=== PATIENT | female | born 1955 | race Caucasian/White ===

== ENCOUNTER → 2017-09-08 | Outpatient (CLI) | payer OTHER ==
--- NOTE | 2017-09-08 10:49 | REP ---
Right upper quadrant sonography: History: However quadrant pain. Abnormal stools. Comparison study: No comparison study. Findings: Scanning through the right upper quadrant of the abdomen demonstrates a normal sized, thin-walled gallbladder without evidence of stone or polyp. Common bile duct is normal measuring 0.4 cm in greatest diameter. No focal liver lesion is seen. Liver size is normal. No pancreatic abnormality is observed. No right renal abnormality is seen. There is no evidence of ascites. The right kidney measures 11.6 x 6.0 x 5.0 cm. Impression: Negative right upper quadrant sonography. Signed by Luis Manuel Rand MD 09/08/2017 10:40 A
--- NOTE | 2017-09-08 13:07 | REP ---
Pelvic sonography: History: Abdominal pain. Right upper quadrant pain and pelvic pain. Cyst. No comparison study. Findings: Transabdominal and transvaginal scanning are performed. Uterine dimensions are 5.3 x 2.0 x 4.1 cm. Endometrial echo 0.7 cm thick and centrally placed. There is a right-sided intramural fibroid measuring 1.4 cm x 1.4 x 0.8 cm. There is a small quantity of endometrial and endocervical fluid. Normal ovaries are seen. Right ovary measures 1.6 x 1.2 x 1.4 cm. Left ovary measures 1.4 x 0.9 x 1.5 cm. Impression: Slightly thickened endometrium in this postmenopausal female. 1.4 cm intramural right-sided fibroid with calcification. Signed by Luis Manuel Rand MD 09/08/2017 03:14 P
== END ==
LOC: M RAD 08:21
PROVIDERS: ATTEND Physician Assistant
DX: R10.2 Pelvic and perineal pain (principal); R10.11 Right upper quadrant pain

== ENCOUNTER → 2018-06-29 | Outpatient (REF) | payer OTHER | LOC: M SFHCLACO 15:08 | DX: Z01.411 Encounter for gynecological examination (general) (routine) with abnormal findings (principal) ==

== ENCOUNTER → 2018-07-10 | Outpatient (CLI) | payer OTHER | LOC: M WHC 10:15 | DX: Z12.31 Encounter for screening mammogram for malignant neoplasm of breast (principal); Z78.0 Asymptomatic menopausal state; Z80.41 Family history of malignant neoplasm of ovary; Z80.0 Family history of malignant neoplasm of digestive organs | CPT/HCPCS: 77067 ==

== ENCOUNTER 2018-12-29 15:51 | Observation (INO) | payer OTHER ==
[~2018-12-29] VITALS: Ht 152.4 cm; Wt 64.7 kg
[2018-12-29] MEDS ORDERED: NS 1,000 ML IV ONE ×2 (16:30→19:00)
[2018-12-29] MEDS ORDERED: TYLE325T5 PO (16:38)
[2018-12-29] MEDS ORDERED: SUMA100T2 PO (16:38)
[2018-12-29 16:52] LABS: BASO % 0.2 % (0.0-1.0); EOS % 0.3 % (0.0-3.0); HEMATOCRIT 45.1 % (36.0-47.0); HEMOGLOBIN 15.7 g/dl (12.0-15.5); LYMPH # 1.2 10^3/uL (1.5-4.5); LYMPH % 20.6 % (24.0-44.0); MEAN CORPUSCULAR HEMOGLOBIN 31.3 pg (27.0-33.0); MEAN CORPUSCULAR HGB CONC 34.8 g/dl (32.0-36.5); MONO # 0.4 10^3/uL (0.0-0.8); MONO % 6.9 % (0.0-5.0); NEUTROPHILS # 4.3 10^3/uL (1.8-7.7); NEUTROPHILS % 71.8 % (36.0-66.0); PLATELET COUNT, AUTOMATED 198 10^3/uL (150-450); RED BLOOD COUNT 5.01 10^6/uL (4.00-5.40)
[2018-12-29 17:02] LABS: INR 0.97
[2018-12-29 17:03] LABS: PARTIAL THROMBOPLASTIN TIME 32.6 SECONDS (25.4-37.6)
[2018-12-29 17:20] LABS: ALT/SGPT 49 U/L (12-78); BILIRUBIN,DIRECT 0.1 MG/DL (0.0-0.2); BILIRUBIN,TOTAL 0.3 MG/DL (0.2-1.0); BLOOD UREA NITROGEN 12 MG/DL (7-18); CALCIUM LEVEL 8.7 MG/DL (8.8-10.2); CARBON DIOXIDE LEVEL 25 MEQ/L (21-32); CHLORIDE LEVEL 103 MEQ/L (98-107); CREATININE FOR GFR 0.82 MG/DL (0.55-1.30); GLOMERULAR FILTRATION RATE > 60.0 (>45); GLUCOSE, FASTING 89 MG/DL (70-100); LIPASE 143 U/L (73-393); POTASSIUM SERUM 4.3 MEQ/L (3.5-5.1); SODIUM LEVEL 138 MEQ/L (136-145); TOTAL PROTEIN 7.3 GM/DL (6.4-8.2)
[2018-12-29] MEDS ORDERED: ISOVUE-370 76% 100ML VIAL (Q9967) As Ordered ONE (17:27)
--- NOTE | 2018-12-29 17:50 | REP ---
Clinical: Left lower quadrant pain and rectal bleeding. Technique: Axial contrast enhanced images from the lung bases to the pubic symphysis using 100 ml Isovue 370 intravenous contrast material with coronal and sagittal re-formations. Findings: Mucosal thickening and pericolonic stranding involving the descending through proximal sigmoid colon most compatible with infectious/inflammatory colitis. Remainder of the small and large bowel is unremarkable. No evidence for bowel obstruction. Normal terminal ileum and appendix identified in the right lower quadrant. Few scattered sigmoid diverticula noted without acute diverticulitis. Liver, pancreas, gallbladder, bilateral adrenal glands and right kidney are normal. Spleen and demonstrates 1 cm cyst along the anterior tip of which is likely benign. Left kidney demonstrates cortical scarring. Pelvis demonstrates normal bladder and 1.4 cm calcified uterine fibroid with normal bilateral adnexa. No ascites. No free air. No significant adenopathy. Abdominal aorta and vasculature without aneurysm or dissection. Musculoskeletal structures demonstrate degenerative changes without focal osseous abnormality. Lung bases are clear. Impression: 1. Infectious/inflammatory colitis involving the descending/proximal sigmoid colon. No evidence for bowel obstruction, free air, ascites or drainable collection/abscess. 2. 1 cm splenic cyst. 3. 1.4 cm calcified uterine fibroid. 4. No further acute abdominopelvic pathology appreciated. Specifically, no ascites, or adenopathy. Electronically Signed by Vijay Feliciano MD 12/29/2018 05:42 P
[2018-12-29] MEDS ORDERED: GI COCKTAIL 50ML BTL(HYOSCYAMINE/MAALOX/LIDOCAINE VISCOUS)(1:3:1) PO ONE (18:00)
[2018-12-29] MEDS ORDERED: metroNIDAZOLE 500 MG in APPROPRIATE DILUENT 1 EA IV ONE (18:45)
[2018-12-29] MEDS ORDERED: CIPROFLOXACIN 400 MG in APPROPRIATE DILUENT 1 EA IV ONE (18:45)
[2018-12-29] MEDS ORDERED: SUMAtriptan SUCCINATE 25 MG TAB PO SCH (19:30)
[2018-12-29] MEDS ORDERED: MORPHINE 4 MG/ML 1ML VIAL/SYRINGE (J2270) IV PRN (20:15)
[2018-12-29 21:34] VITALS: BP 124/78
[2018-12-29] MEDS: NS 1,000 ML IV SCH (21:45)
[2018-12-29] MEDS: ACETAMINOPHEN TAB 650MG DOSE (2X325MG) PO PRN (22:38)
[2018-12-30] MEDS: ACETAMINOPHEN TAB 650MG DOSE (2X325MG) PO PRN (05:40)
--- NOTE | 2018-12-30 05:43 | HPE ---
DATE OF ADMISSION: 12/29/2018 This is a 63-year-old female with a past medical history of migraines who presents to the emergency room with bright red blood per rectum which started at approximately 01:30 this morning. She had left lower quadrant abdominal pain and then she went to the bathroom and found out that she had bright red blood with some clots. She had another episode in the morning and then she states she came to the emergency room (ER) for evaluation. She had one more episode in the ER. The patient was started on intravenous (IV) fluids. CT scan of the abdomen and pelvis showed descending and sigmoid colitis. Started her on intravenous (IV) Cipro and Flagyl. The patient, at this time, is very comfortable. She has no pain and offered no complaints. Her mother of colon cancer at age 74 and she has already had two colonoscopies and a third one to come soon and her last colonoscopy 5 years ago in [place] was normal. It did not show any polyps or diverticulosis. She will be admitted for further management. Again, past medical history of migraine headaches. She has no known drug allergies. FAMILY HISTORY: Family history is positive for colon cancer (CA) on the mother's side. SOCIAL HISTORY: The patient denies tobacco. She drinks whiskey once in a while but she is not a chronic drinker. She denies illicit drug use. MEDICATIONS: She takes at home are as follows: - sumatriptan succinate 100 mg as needed - Tylenol 650 mg by mouth every 6 as needed REVIEW OF SYSTEMS: Negative in all major ten major systems except what was mentioned in the history of present illness (HPI). VITAL SIGNS: Blood pressure is 115/78, heart rate is 95 and regular, respiratory rate is 20, temperature is 96.3, oxygen (O2) saturation is 99% on room air. Head is atraumatic, normocephalic. Neck is supple. No jugular venous distention (JVD). LUNGS: Are clear to auscultation. HEART: S1, S2 normal. No murmurs appreciated. ABDOMEN: Positive tenderness on deep palpation of the left lower quadrant. No rebound. Positive bowel sounds, no pedal edema. SKIN: Intact. NEUROLOGIC EXAMINATION: The patient is awake, alert, oriented times three. LABORATORIES: Sodium 138, potassium 4.3, chloride 103, CO2 is 25, BUN is 12, creatinine is 0.82, lipase 143. White blood cell (WBC) 6, hemoglobin is 15.7, hematocrit is 45.1, platelets are 198,000. IMPRESSION: 1. Lower gastrointestinal (GI) bleed. 2. Colitis. PLAN: The patient will be admitted to the medical-surgical floor. Will continue the patient in intravenous (IV) Cipro and Flagyl for now for her colitis and give her morphine for pain. Will monitor her hemoglobin and hematocrit (H and H) daily and will consider a gastroenterology (GI) consult in the future once the colitis has subsided.
[2018-12-30 06:00] VITALS: BP 116/70
[2018-12-30 06:27] LABS: BASO % 0.2 % (0.0-1.0); EOS % 0.9 % (0.0-3.0); HEMATOCRIT 38.6 % (36.0-47.0); LYMPH # 1.3 10^3/uL (1.5-4.5); LYMPH % 28.3 % (24.0-44.0); MEAN CORPUSCULAR HGB CONC 33.9 g/dl (32.0-36.5); MEAN CORPUSCULAR VOLUME 91.3 fl (80.0-96.0); MONO # 0.3 10^3/uL (0.0-0.8); MONO % 7.2 % (0.0-5.0); NEUTROPHILS # 2.8 10^3/uL (1.8-7.7); NEUTROPHILS % 62.7 % (36.0-66.0); PLATELET COUNT, AUTOMATED 161 10^3/uL (150-450); RED BLOOD COUNT 4.23 10^6/uL (4.00-5.40); WHITE BLOOD COUNT 4.5 10^3/uL (4.0-10.0)
[2018-12-30 06:38] LABS: HEMOGLOBIN 13.1 g/dl (12.0-15.5)
[2018-12-30 06:54] LABS: BLOOD UREA NITROGEN 8 MG/DL (7-18); CALCIUM LEVEL 7.7 MG/DL (8.8-10.2); CARBON DIOXIDE LEVEL 24 MEQ/L (21-32); CHLORIDE LEVEL 108 MEQ/L (98-107); CREATININE FOR GFR 0.65 MG/DL (0.55-1.30); GLOMERULAR FILTRATION RATE > 60.0 (>45); GLUCOSE, FASTING 92 MG/DL (70-100); POTASSIUM SERUM 3.7 MEQ/L (3.5-5.1); SODIUM LEVEL 140 MEQ/L (136-145)
[2018-12-30] MEDS: NS 1,000 ML IV SCH ×2 (08:50→21:02)
[2018-12-30] MEDS: CIPROFLOXACIN 400 MG in APPROPRIATE DILUENT 1 EA IV SCH ×2 (09:58→21:01)
[2018-12-30] MEDS ORDERED: PANTOPRAZOLE 40MG INJ (PROTONIX) (C9113) IV ONE (10:00)
[2018-12-30 10:12] LABS: C REACTIVE PROTEIN QUANTITATIV 2.19 MG/DL (0.00-0.30); FERRITIN 123 NG/ML (8-252); IRON (FE) 24 UG/DL (50-170); LDH LACTATE DEHYDROGENASE 176 U/L (84-246); PERCENT SATURATION 10.9 % (13.2-45.0); TOTAL IRON BINDING CAPACITY 221 UG/DL (250-450)
--- NOTE | 2018-12-30 10:28 | IPNPDOC ---
Text Note Date of Service The patient was seen on 12/30/18. NOTE Subjective: Patient is a 63-year-old female with a PMHx of Migraine headaches who presented to the ER with rectal bleeding an mild abdominal pain. In the emergency room, patient had imaging that was consistent with colitis. . She was admitted to the hospitalist service for further evaluation and treatment. Patient was seen and examined at the bedside. Patient denies any headache, chest pain, shortness of breath or palpitations. Denies nausea or vomiting. Notes that her appetite is poor. Doesn't report any significant abdominal pain. Has had bowel movements this morning with small amounts of blood. I have seen her bowel movements and can quantify blood loss at less than 15 mL. Objective: Vitals (See below) General: Lying in bed, no acute distress, comfortable, AAOx3 HEENT: NC, AT CVS: RRR, +S1S2 Lungs: Fair air entry b/l, -w/r/r Abdomen: Soft, ND, NT Extremities: - Edema, - Calf tenderness Assessment and plan: Rectal bleeding - likely 2/2 Lower GI bleed - possibly 2/2 colitis - possibly 2/2 infectious etiology, less likely 2/2 ischemic, less likely 2/2 inflammatory - Patient presented to the emergency room after experiencing bright red bleeding per rectum at 1:30 AM on Monday - Physical does not reveal any abdominal tenderness, she remains afebrile, hemodynamically stable - No significant leukocytosis or lactic acidosis - Hemoglobin remained stable; will continue to follow H&H every 6 hours - GI panel 2/2: Negative - CRP not significantly elevated LDH not significantly elevated - CT abdomen / pelvis 2/2: 1. Infectious/inflammatory colitis involving the descending/proximal sigmoid colon. No evidence for bowel obstruction, free air, ascites or drainable collection/abscess. 2. 1 cm splenic cyst. 3. 1.4 cm calcified uterine fibroid. 4. No further acute abdominopelvic pathology appreciated. Specifically, no ascites, or adenopathy. - c/w Ciprofloxacin and Flagyl (Day #2) - Will likely need outpatient colonoscopy Possible SARATH - Will start Ferrous sulfate Migraine headaches - Has no complaints today - c/w Sumatriptan GI prophylaxis - Will start Protonix DVT prophylaxis - c/w SCDs/ALEXIS VS,Fishbone, I+O VS, Fishbone, I+O Laboratory Tests 12/29/18 16:46 Red Blood Count 5.01, Mean Corpuscular Volume 90.0, Mean Corpuscular Hemoglobin 31.3, Mean Corpuscular Hemoglobin Concent 34.8, Red Cell Distribution Width 12. 3, Neutrophils (%) (Auto) 71.8 H, Lymphocytes (%) (Auto) 20.6 L, Monocytes (%) (Auto) 6.9 H, Eosinophils (%) (Auto) 0.3, Basophils (%) (Auto) 0.2, Neutrophils # (Auto) 4.3, Lymphocytes # (Auto) 1.2 L, Monocytes # (Auto) 0.4, Eosinophils # (Auto) 0.0, Basophils # (Auto) 0.0 12/30/18 06:07 Red Blood Count 4.23, Mean Corpuscular Volume 91.3, Mean Corpuscular Hemoglobin 31.0, Mean Corpuscular Hemoglobin Concent 33.9, Red Cell Distribution Width 12.4, Neutrophils (%) (Auto) 62.7, Lymphocytes (%) (Auto) 28.3, Monocytes (%) (Auto) 7.2 H, Eosinophils (%) (Auto) 0.9, Basophils (%) (Auto) 0.2, Neutrophils # (Auto) 2.8, Lymphocytes # (Auto) 1.3 L, Monocytes # (Auto) 0.3, Eosinophils # (Auto) 0.0, Basophils # (Auto) 0.0, Calcium Level 7.7 L Vital Signs Date Time Temp Pulse Resp B/P (MAP) Pulse Ox O2 Delivery O2 Flow Rate FiO2 12/30/18 06:00 98.1 73 18 116/70 (85) 92 12/29/18 21:00 Room Air I&O- Last 24 Hours up to 6 AM 12/30/18 05:59 Intake Total 1300 ml Output Total 250 ml Balance 1050 ml TANO ANSARI MD Dec 30, 2018 10:28
[2018-12-30 10:39] LABS: ERYTHROCYTE SEDIMENTATION RATE 14 mm/hr (0-30)
[2018-12-30] MEDS: FERROUS SULFATE 325MG TAB PO SCH (10:43)
[2018-12-30] MEDS: metroNIDAZOLE 500 MG in APPROPRIATE DILUENT 1 EA IV SCH ×2 (11:55→18:12)
[2018-12-30 12:31] LABS: HEMATOCRIT 37.6 % (36.0-47.0)
[2018-12-30 14:00] VITALS: BP 105/68
[2018-12-30 18:00] LABS: HEMATOCRIT 37.7 % (36.0-47.0); HEMOGLOBIN 12.9 g/dl (12.0-15.5)
[2018-12-30 22:00] VITALS: BP 113/72
[2018-12-30 23:52] LABS: HEMATOCRIT 38.7 % (36.0-47.0); HEMOGLOBIN 13.1 g/dl (12.0-15.5)
[2018-12-31] MEDS: metroNIDAZOLE 500 MG in APPROPRIATE DILUENT 1 EA IV SCH ×2 (02:19→12:09)
[2018-12-31 05:57] LABS: BASO % 0.2 % (0.0-1.0); EOS # 0.1 10^3/uL (0.0-0.50); EOS % 1.3 % (0.0-3.0); HEMATOCRIT 40.6 % (36.0-47.0); HEMOGLOBIN 13.7 g/dl (12.0-15.5); LYMPH # 1.7 10^3/uL (1.5-4.5); LYMPH % 38.2 % (24.0-44.0); MEAN CORPUSCULAR HEMOGLOBIN 30.6 pg (27.0-33.0); MEAN CORPUSCULAR HGB CONC 33.7 g/dl (32.0-36.5); MEAN CORPUSCULAR VOLUME 90.8 fl (80.0-96.0); MONO # 0.3 10^3/uL (0.0-0.8); MONO % 6.6 % (0.0-5.0); NEUTROPHILS # 2.4 10^3/uL (1.8-7.7); NEUTROPHILS % 53.5 % (36.0-66.0); PLATELET COUNT, AUTOMATED 177 10^3/uL (150-450); RED BLOOD COUNT 4.47 10^6/uL (4.00-5.40); WHITE BLOOD COUNT 4.5 10^3/uL (4.0-10.0)
[2018-12-31 06:00] VITALS: BP 111/76
[2018-12-31 06:26] LABS: BLOOD UREA NITROGEN 6 MG/DL (7-18); CALCIUM LEVEL 8.1 MG/DL (8.8-10.2); CARBON DIOXIDE LEVEL 28 MEQ/L (21-32); CHLORIDE LEVEL 110 MEQ/L (98-107); CREATININE FOR GFR 0.67 MG/DL (0.55-1.30); GLOMERULAR FILTRATION RATE > 60.0 (>45); GLUCOSE, FASTING 85 MG/DL (70-100); MAGNESIUM LEVEL 1.7 MG/DL (1.8-2.4); POTASSIUM SERUM 3.9 MEQ/L (3.5-5.1); SODIUM LEVEL 145 MEQ/L (136-145)
[2018-12-31] MEDS ORDERED: MAG SULF 1GM/100ML (MAG RUN) 1 GM in APPROPRIATE DILUENT 1 EA IV ONE (08:00)
[2018-12-31] MEDS: FERROUS SULFATE 325MG TAB PO SCH (08:53)
[2018-12-31] MEDS ORDERED: PANTOPRAZOLE 40MG INJ (PROTONIX) (C9113) IV SCH (09:00)
[2018-12-31] MEDS: CIPROFLOXACIN 400 MG in APPROPRIATE DILUENT 1 EA IV SCH (10:01)
[2018-12-31] MEDS ORDERED: FERR1TAB8 PO (11:13)
[2018-12-31] MEDS ORDERED: CIPR500T3 PO (11:13)
[2018-12-31] MEDS ORDERED: FLAG500T PO (11:13)
--- NOTE | 2018-12-31 12:02 | DS.PDOC ---
Discharge Summary General Date of Admission Dec 29, 2018 at 20:24 Date of Discharge 12/31/2018 Discharge Summary PROCEDURES PERFORMED DURING STAY: [None]. ADMITTING DIAGNOSES / DISCHARGE DIAGNOSES: Rectal bleeding - likely 2/2 Lower GI bleed - possibly 2/2 colitis - possibly 2/2 infectious etiology, less likely 2/2 ischemic, less likely 2/2 inflammatory Possible SARATH Migraine headaches GI prophylaxis DVT prophylaxis COMPLICATIONS/CHIEF COMPLAINT: Rectal bleeding HISTORY OF PRESENT ILLNESS: Patient is a 63-year-old female with a PMHx of Migraine headaches who presented to the ER with rectal bleeding an mild abdominal pain. In the emergency room, patient had imaging that was consistent with colitis. . She was admitted to the hospitalist service for further evaluation and treatment. HOSPITAL COURSE: Rectal bleeding - likely 2/2 Lower GI bleed - possibly 2/2 colitis - possibly 2/2 infectious etiology, less likely 2/2 ischemic, less likely 2/2 inflammatory - Currently patient has noted resolution of her abdominal pain. She denies any significant rectal bleeding - Physical without abdominal tenderness, afebrile, remains hemodynamically stable - No significant leukocytosis or lactic acidosis - Hemoglobin has remained stable and has not required any transfusions - GI panel 2/2: Negative - CRP and LDH not significantly elevated - CT abdomen / pelvis 2/2: 1. Infectious/inflammatory colitis involving the descending/proximal sigmoid colon. No evidence for bowel obstruction, free air, ascites or drainable collection/abscess. 2. 1 cm splenic cyst. 3. 1.4 cm calcified uterine fibroid. 4. No further acute abdominopelvic pathology appreciated. Specifically, no ascites, or adenopathy. - c/w Ciprofloxacin and Flagyl (Day #3); will complete antibiotic course as outpatient - Advised patient that they should get outpatient screening colonoscopy; will provide instructions to primary care provider for outpatient referral Possible SARATH - c/w Ferrous sulfate Migraine headaches - Has no complaints today - c/w Sumatriptan GI prophylaxis - c/w Protonix DVT prophylaxis - c/w SCDs/ALEXIS DISCHARGE MEDICATIONS: Please see below. ALLERGIES: Please see below. PHYSICAL EXAMINATION ON DISCHARGE: Vitals (See below) General: Lying in bed, no acute distress, comfortable, AAOx3 HEENT: NC, AT CVS: RRR, +S1S2 Lungs: Fair air entry b/l, no evidence of wheezing / rhonchi / rales Abdomen: Soft, Non-distended without tenderness Extremities: No evidence of edema, - Calf tenderness LABORATORY DATA: Please see below. ACTIVITY: [As tolerated]. DISCHARGE PLAN: Follow up with Dr. Jose C Jacinto within the next 7 days Remain compliant with treatment plan and medications Return to the ER if you experience any problems. DISPOSITION: Home DISCHARGE CONDITION: [Stable]. TIME SPENT ON DISCHARGE: Greater than [35] minutes. Vital Signs/I&Os Vital Signs Date Time Temp Pulse Resp B/P (MAP) Pulse Ox O2 Delivery O2 Flow Rate FiO2 12/31/18 06:00 98.3 87 18 111/76 (88) 93 12/29/18 21:00 Room Air I&O- Last 24 Hours up to 6 AM 12/31/18 06:00 Intake Total 2455 ml Output Total 3600 ml Balance -1145 ml Laboratory Data Labs 24H Laboratory Tests 2 12/30/18 12:19: 12/31/18 05:45: Immature Granulocyte % (Auto) 0.2, White Blood Count 4.5, Red Blood Count 4.47, Hemoglobin 13.7, Hematocrit 40.6, Mean Corpuscular Volume 90.8, Mean Corpuscular Hemoglobin 30.6, Mean Corpuscular Hemoglobin Concent 33.7, Red Cell Distribution Width 12.1, Platelet Count 177, Neutrophils (%) (Auto) 53.5, Lymphocytes (%) (Auto) 38.2, Monocytes (%) (Auto) 6.6H, Eosinophils (%) (Auto) 1.3, Basophils (%) (Auto) 0.2, Neutrophils # (Auto) 2.4, Lymphocytes # (Auto) 1.7, Monocytes # (Auto) 0.3, Eosinophils # (Auto) 0.1, Basophils # (Auto) 0.0, Nucleated Red Blood Cells % (auto) 0.0, Anion Gap 7L, Glomerular Filtration Rate > 60.0, Blood Urea Nitrogen 6L, Creatinine 0.67, Sodium Level 145, Potassium Level 3.9, Chloride Level 110H, Carbon Dioxide Level 28, Calcium Level 8.1L, Magnesium Level 1.7L CBC/BMP Laboratory Tests 12/30/18 12:19 12/30/18 17:49 12/30/18 23:47 12/31/18 05:45 Red Blood Count 4.47, Mean Corpuscular Volume 90.8, Mean Corpuscular Hemoglobin 30.6, Mean Corpuscular Hemoglobin Concent 33.7, Red Cell Distribution Width 12.1, Neutrophils (%) (Auto) 53.5, Lymphocytes (%) (Auto) 38.2, Monocytes (%) (Auto) 6.6 H, Eosinophils (%) (Auto) 1.3, Basophils (%) (Auto) 0.2, Neutrophils # (Auto) 2.4, Lymphocytes # (Auto) 1.7, Monocytes # (Auto) 0.3, Eosinophils # (Auto) 0.1, Basophils # (Auto) 0.0, Calcium Level 8.1 L Microbiology Microbiology 12/29/18 Gastrointestinal Tract Panel (PCR) - Final, Complete Discharge Medications Scheduled Ciprofloxacin HCl (Ciprofloxacin HCl) 500 Mg Tab, 1 TAB PO BID Ferrous Sulfate (Ferrous Sulfate) 325 Mg Tab, 325 MG PO DAILY Metronidazole (Flagyl) 500 Mg Tab, 1 TAB PO TID Sumatriptan Succinate (Sumatriptan Succinate) 100 Mg Tab, 100 MG PO ASDIRECTED, (Reported) Scheduled PRN Acetaminophen (Tylenol) 325 Mg Tab, 650 MG PO for PAIN, (Reported) Allergies Coded Allergies: No Known Allergies (Unverified , 12/29/18) TANO ANSARI MD Dec 31, 2018 12:02
== END 2018-12-31 13:45 | disposition home or self-care (01) ==
LOC: M ED 15:51 → M ED INP 20:24 → M MSPAV 21:34
PROVIDERS: ADMIT Internal Medicine; ATTEND Internal Medicine
DX: K52.89 Other specified noninfective gastroenteritis and colitis (principal); K92.2 Gastrointestinal hemorrhage, unspecified; Z79.899 Other long term (current) drug therapy; G43.909 Migraine, unspecified, not intractable, without status migrainosus
CPT/HCPCS: 36415; 74177; 80048; 80076; 82728; 83605; 83615; 83690; 83735; 84466; 85014; 85018; 85025; 85046; 85610; 85652; 85730; 86140; 86850; 86900; 86901; 87507; 93041; 96361; 96365; 96366; 96367; 96375; 96376; 99285; C9113; J0744; J3475; Q9967

== ENCOUNTER 2019-06-03 08:42 | Day surgery (SDC) | payer OTHER ==
[~2019-06-03] VITALS: Ht 149.9 cm; Wt 63.5 kg
[~2019-06-03 08:42] MED LIST: CIPR500T3 PO; FERR1TAB8 PO; FLAG500T PO; FLUTISP; NS 1,000 ML IV ONE; OMEP-218 PO; PSEU30TA85 PO; SUMA100T2 PO; TYLE325T5 PO
[2019-06-03] MEDS ORDERED: PROPOFOL 200 MG/20 ML VIAL As Ordered ONE ×4 (10:52→12:07)
[2019-06-03] MEDS ORDERED: LIDOCAINE 2% INJ 100 MG/5 ML SDV (FOR ANES.) As Ordered ONE (10:52)
--- NOTE | 2019-06-03 11:45 | ROOR ---
Patient Name: Liz Lopes Procedure Date: 06/03/2019 10:58 AM Date of : 1955 Age: 64 Room: [facility] Gender: Female Note Status: Finalized Procedure: Upper GI endoscopy Indications: Suspected gastro-esophageal reflux disease Providers: Jeff Vickers MD Referring MD: ROYCE Massey PA-C Requesting Provider: Medicines: Monitored Anesthesia Care Complications: No immediate complications. Procedure: Pre-Anesthesia Assessment: - Prior to the procedure, a History and Physical was performed, and patient medications and allergies were reviewed. The patient is competent. The risks and benefits of the procedure and the sedation options and risks were discussed with the patient. All questions were answered and informed consent was obtained. Patient identification and proposed procedure were verified by the physician, the nurse and the anesthesiologist in the procedure room. Mental Status Examination: alert and oriented. Airway Examination: normal oropharyngeal airway and neck mobility. Respiratory Examination: clear to auscultation. CV Examination: normal. Prophylactic Antibiotics: The patient does not require prophylactic antibiotics. Prior Anticoagulants: The patient has taken no previous anticoagulant or antiplatelet agents. ASA Grade Assessment: II - A patient with mild systemic disease. After reviewing the risks and benefits, the patient was deemed in satisfactory condition to undergo the procedure. The anesthesia plan was to use monitored anesthesia care (MAC). Immediately prior to administration of medications, the patient was re-assessed for adequacy to receive sedatives. The heart rate, respiratory rate, oxygen saturations, blood pressure, adequacy of pulmonary ventilation, and response to care were monitored throughout the procedure. The physical status of the patient was re-assessed after the procedure. The Endoscope was introduced through the mouth, and advanced to the second part of duodenum. The upper GI endoscopy was accomplished without difficulty. The patient tolerated the procedure well. Findings: The Z-line was irregular and was found 37 cm from the incisors. LA Grade A (one or more mucosal breaks less than 5 mm, not extending between tops of 2 mucosal folds) esophagitis with no bleeding was found in the distal esophagus. Biopsies were taken with a cold forceps for histology. Verification of patient identification for the specimen was done by the physician and nurse using the patient's name, date and medical record number. Estimated blood loss was minimal. A small hiatal hernia was present. Scattered moderate inflammation characterized by erosions, friability and granularity was found in the gastric antrum. Biopsies were taken with a cold forceps for Helicobacter pylori testing. The duodenal bulb and second portion of the duodenum were normal. Impression: - Z-line irregular, 37 cm from the incisors. - LA Grade A reflux esophagitis. Biopsied. - Small hiatal hernia. - Gastritis. Biopsied. - Normal duodenal bulb and second portion of the duodenum. Recommendation: - Patient has a contact number available for emergencies. The signs and symptoms of potential delayed complications were discussed with the patient. Return to normal activities tomorrow. Written discharge instructions were provided to the patient. - Resume previous diet. - Follow an antireflux regimen. - Continue present medications. - Await pathology results. - Telephone GI clinic for pathology results in 2 weeks. - Return to primary care physician. Jeff Vickers MD Jeff Vickers MD 06/03/2019 11:44:24 AM Electronically signed by Jeff Vickers MD Number of Addenda: 0 Note Initiated On: 06/03/2019 10:58 AM Estimated Blood Loss: Estimated blood loss was minimal.
--- NOTE | 2019-06-03 11:50 | ROOR ---
Patient Name: Liz Lopes Procedure Date: 06/03/2019 10:59 AM Date of : 1955 Age: 64 Room: [facility] Gender: Female Note Status: Finalized Procedure: Colonoscopy Indications: Screening for colorectal malignant neoplasm Providers: Jeff Vikcers MD Referring MD: ROYCE Massey PA-C Requesting Provider: Medicines: Monitored Anesthesia Care Complications: No immediate complications. Procedure: Pre-Anesthesia Assessment: - Prior to the procedure, a History and Physical was performed, and patient medications and allergies were reviewed. The patient is competent. The risks and benefits of the procedure and the sedation options and risks were discussed with the patient. All questions were answered and informed consent was obtained. Patient identification and proposed procedure were verified by the physician, the nurse and the anesthesiologist in the procedure room. Mental Status Examination: alert and oriented. Airway Examination: normal oropharyngeal airway and neck mobility. Respiratory Examination: clear to auscultation. CV Examination: normal. Prophylactic Antibiotics: The patient does not require prophylactic antibiotics. Prior Anticoagulants: The patient has taken no previous anticoagulant or antiplatelet agents. ASA Grade Assessment: II - A patient with mild systemic disease. After reviewing the risks and benefits, the patient was deemed in satisfactory condition to undergo the procedure. The anesthesia plan was to use monitored anesthesia care (MAC). Immediately prior to administration of medications, the patient was re-assessed for adequacy to receive sedatives. The heart rate, respiratory rate, oxygen saturations, blood pressure, adequacy of pulmonary ventilation, and response to care were monitored throughout the procedure. The physical status of the patient was re-assessed after the procedure. The Colonoscope was introduced through the anus and advanced to the terminal ileum, with identification of the appendiceal orifice and IC valve. The colonoscopy was performed without difficulty. The patient tolerated the procedure well. The quality of the bowel preparation was good. The terminal ileum, ileocecal valve, appendiceal orifice, and rectum were photographed. Scope insertion time was 3 minutes. Scope withdrawal time was 9 minutes. The total duration of the procedure was 12 minutes. Findings: The perianal and digital rectal examinations were normal. The terminal ileum appeared normal. A 4 mm polyp was found in the descending colon. The polyp was sessile. The polyp was removed with a cold biopsy forceps. Resection and retrieval were complete. Verification of patient identification for the specimen was done by the physician and nurse using the patient's name, date and medical record number. Estimated blood loss was minimal. A 3 mm polyp was found in the rectum. The polyp was sessile. The polyp was removed with a cold biopsy forceps. Resection and retrieval were complete. Non-bleeding external and internal hemorrhoids were found during retroflexion. The hemorrhoids were small. Impression: - The examined portion of the ileum was normal. - One 4 mm polyp in the descending colon, removed with a cold biopsy forceps. Resected and retrieved. - One 3 mm polyp in the rectum, removed with a cold biopsy forceps. Resected and retrieved. - Non-bleeding external and internal hemorrhoids. Recommendation: - Patient has a contact number available for emergencies. The signs and symptoms of potential delayed complications were discussed with the patient. Return to normal activities tomorrow. Written discharge instructions were provided to the patient. - High fiber diet. - Continue present medications. - Await pathology results. - Repeat colonoscopy in 5-10 years for surveillance based on pathology results. - Telephone ERCP clinic for pathology results in 2 weeks. - Return to primary care physician. Jeff Vickers MD Jeff Vickers MD 06/03/2019 11:50:17 AM Electronically signed by Jeff Vickers MD Number of Addenda: 0 Note Initiated On: 06/03/2019 10:59 AM Estimated Blood Loss: Estimated blood loss: none.
[2019-06-03 12:00] VITALS: BP 96/68
== END 2019-06-03 12:25 | disposition home or self-care (01) ==
LOC: M OPP 08:42
PROVIDERS: ATTEND Internal Medicine Gastroenterology
DX: Z12.11 Encounter for screening for malignant neoplasm of colon (principal); K64.8 Other hemorrhoids; D12.4 Benign neoplasm of descending colon; K62.1 Rectal polyp; K22.8 Other specified diseases of esophagus; K21.0 Gastro-esophageal reflux disease with esophagitis; K44.9 Diaphragmatic hernia without obstruction or gangrene; K29.70 Gastritis, unspecified, without bleeding; Z79.899 Other long term (current) drug therapy

== ENCOUNTER → 2021-08-16 | Outpatient (CLI) | payer OTHER ==
[~2021-08-16] MED LIST changes: -NS 1,000 ML IV ONE; +OMEP-173 PO; -OMEP-218 PO; -PSEU30TA85 PO; +PSEU30TA86 PO
== END ==
LOC: M WHC 07:38
PROVIDERS: ATTEND Physician Assistant
DX: Z12.31 Encounter for screening mammogram for malignant neoplasm of breast (principal); N95.1 Menopausal and female climacteric states; R10.11 Right upper quadrant pain

== ENCOUNTER → 2021-09-01 | Outpatient (CLI) | payer OTHER ==
[~2021-09-01] MED LIST changes: -OMEP-173 PO; +OMEP-218 PO
--- NOTE | 2021-09-01 09:43 | REP ---
INDICATION: RUQ PAIN, RIGHT FLANK PAIN, URINARY FREQUENCY, EASRLY SATIET COMPARISON: None. TECHNIQUE: Real time hua scale ultrasound examination using curved array transducer. FINDINGS: Liver demonstrates diffuse fatty infiltration with focal areas of fatty sparing adjacent to the gallbladder fossa. Pancreas is normal in appearance. The gallbladder is normal and without gallstones, wall thickening, or pericholecystic fluid. No biliary ductal dilatation is appreciated and the common bile duct measures 2.0 mm diameter. Right kidney is normal in reniform shape without hydronephrosis and measures 11.2 x 5.8 x 5.2 cm. No ascites in the visualized right upper quadrant. Visualized abdominal aorta appears normal. IMPRESSION: Hepatosteatosis with areas of focal fatty sparing. <Electronically signed by Vijay Feliciano > 09/01/21 [id number]
--- NOTE | 2021-09-01 11:27 | REP ---
INDICATION: RUQ PAIN, RIGHT FLANK PAIN, URINARY FREQUENCY, EASRLY SATIET. COMPARISON: None. TECHNIQUE: Real-time sonographic evaluation of the urinary bladder only with Doppler FINDINGS: The pre void urinary bladder volume calculation is 198 cc and the postvoid urinary bladder volume calculation is 48 cc. Doppler at the UV junction shows uro jet phenomena bilaterally. There is no gross urinary bladder wall abnormality. IMPRESSION: As above <Electronically signed by Van Jeffrey > 09/01/21 [id number]
== END ==
LOC: M WHC 08:50
PROVIDERS: ATTEND Physician Assistant
DX: R68.81 Early satiety (principal); R10.11 Right upper quadrant pain; R35.0 Frequency of micturition; K76.0 Fatty (change of) liver, not elsewhere classified